=== PATIENT | male | born 1970 | race Two or more races ===

== ENCOUNTER 2020-06-16 18:45 | Emergency (ER) | payer OTHER ==
[~2020-06-16] VITALS: Ht 172.7 cm; Wt 68.0 kg
--- NOTE | 2020-06-16 18:55 | NUR ---
PT BIBRA FROM A CLINIC TO ER BED 04. PER EMS REPORT PT WAS AKSED BY THE CLINIC TO GO TO ED FOR HE MIGHT GET STROKE FOR HIS HIGH BLOOD PRESSURE. PT IS VERBALLY RESPONSIVE C/O MILD BACK OF THE HEAD PAIN. STATES NON COMPLIANT W/ B/P MEDS FOR THE PAST MONTHS. 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 NO NEURO DEFICIT OR ANY FOCAL WEAKNESS NOTED CHAIN PEGGER. AWAITNG MD MARIN.
--- NOTE | 2020-06-16 18:57 | NUR ---
DR LAMBERT AT BEDSIDE FOR EVAL.
--- NOTE | 2020-06-16 18:57 | NUR ---
Meliton beckman in [facility] - 06/16/20 at [address] LAMBERT AT [facility] FOR BLOOD DRAW.
--- NOTE | 2020-06-16 18:57 | NUR ---
Meliton beckman in [facility] - 06/16/20 at [address] LAMBERT AT [facility] FOR BLOOD DRAW.
[2020-06-16] MEDS ORDERED: LABETALOL HCL IV 100MG VIAL IV ONE ×3 (19:00→20:30)
[2020-06-16] MEDS ORDERED: LABETALOL HCL IV 100MG VIAL ONE (19:00)
--- NOTE | 2020-06-16 19:07 | NUR ---
IV LINE STARTED BLOOD DRAWN AND SENT TO LAB.
--- NOTE | 2020-06-16 19:16 | NUR ---
PT TO RADIOLOGY FOR HEAD CT SCAN VIA [facility].
[2020-06-16 19:19] LABS: CALCIUM, SERUM 8.7 mg/dL (8.5-10.1); CARBON DIOXIDE 28 mmol/L (21-32); CHLORIDE 103 mmol/L (98-107); CREATININE 1.5 mg/dL (0.6-1.3); GLUCOSE 106 mg/dL (74-106); POTASSIUM 3.7 mmol/L (3.5-5.1); SODIUM SERUM 140 mmol/L (136-145); UREA NITROGEN, BLOOD 28 mg/dL (7-18)
[2020-06-16 19:20] LABS: BASOPHILS # (AUTO) 0.1 /CMM (0.0-0.2); BASOPHILS % (AUTO) 0.9 % (0.0-2.0); HEMATOCRIT 47 % (39-51); HEMOGLOBIN 15.8 g/dL (13.5-17.5); LYMPHOCYTES % (AUTO) 22.7 % (20.0-44.0); MEAN CORPUSCULAR HGB CONC 34 g/dl (31.0-36.0); MEAN CORPUSCULAR VOLUME 84 fL (80-96); MONOCYTES # (AUTO) 0.8 /CMM (0.1-1.30); MONOCYTES % (AUTO) 8.8 % (2.0-12.0); NEUTROPHILS # (AUTO) 5.6 /CMM (1.8-8.9); NEUTROPHILS % (AUTO) 64.6 % (43.0-81.0); PLATELET COUNT (AUTO) 253 /CMM (150-450); WHITE BLOOD COUNT (AUTO) 8.7 K/uL (4.3-11.0)
--- NOTE | 2020-06-16 19:24 | NUR ---
REPORT GIVEN TO SUSU DALTON FOR JOSE.
[2020-06-16] MEDS ORDERED: CLONIDINE HCL 0.1 MG TABLET ONE ×2 (19:42→20:56)
[2020-06-16] MEDS ORDERED: AMLO-213 PO (19:59)
[2020-06-16] MEDS ORDERED: LISI1TAB29 PO (19:59)
[2020-06-16] MEDS ORDERED: CLONIDINE HCL 0.1 MG TABLET PO ONE ×2 (20:00→21:00)
--- NOTE | 2020-06-16 21:32 | NUR ---
okay to discharge patient.
--- NOTE | 2020-06-16 21:37 | NUR ---
IV removed. Catheter intact and site benign. Pressure and 4x4 applied to site. No bleeding noted.
--- NOTE | 2020-06-16 21:37 | NUR ---
Patient discharged to home in stable condition. Written and verbal after care instructions given. Patient verbalizes understanding of instruction.
[2020-06-16 21:43] VITALS: BP 165/112
== END 2020-06-16 21:43 | disposition home or self-care (01) ==
LOC: ER 18:45
DX: I10 Essential (primary) hypertension (principal); R51.9 Headache, unspecified; Z79.899 Other long term (current) drug therapy
CPT/HCPCS: 36415; 70450; 80048; 84484; 85025; 93005; 96374; 96376; 99285; J3490